=== PATIENT | female | born 1960 | race Caucasian/White ===

== ENCOUNTER 2018-08-02 07:23 | Emergency (ER) | payer BC ==
[~2018-08-02] VITALS: Ht 160 cm; Wt 59.0 kg
[~2018-08-02 07:23] MED LIST: KLONOPIN0.5 MG PO; ULTRAM50 M1 PO
[2018-08-02] MEDS ORDERED: FLEXERIL PO ×2 (08:41→09:19)
[2018-08-02] MEDS ORDERED: DICLOFENAC50 MG PO ×2 (08:41→09:19)
[2018-08-02 09:16] VITALS: BP 177/87
== END 2018-08-02 09:24 | disposition home or self-care (01) | DRG 605 ==
LOC: ED 07:23
DX: S00.03XA Contusion of scalp, initial encounter (principal); S16.1XXA Strain of muscle, fascia and tendon at neck level, initial encounter; W18.30XA Fall on same level, unspecified, initial encounter; Y92.008 Other place in unspecified non-institutional (private) residence as the place of occurrence of the external cause

== ENCOUNTER 2019-03-02 | Emergency (ER) | payer BC ==
[~2019-03-02] MED LIST changes: +DICLOFENAC50 MG PO; +FLEXERIL PO
--- NOTE | 2019-03-02 23:14 | NUR ---
BREATHING TREATMENT GIVEN BACK TO BACK WITH 2 ALBUTEROL AND 1 DUONEB. BREATHING TECH. FOR DEEO DEPOSITION TO THE LUNGS.
[2019-03-02 23:25] LABS: HEMATOCRIT 36.9 % (37.0-47.0); HEMOGLOBIN 12.4 g/dl (12.0-16.0); IMMATURE GRANULOCYTES 0.2 % (0.0-5.0); MEAN CELL VOLUME 91.3 fL CALC (80.0-100.0); MEAN CORPUSCULAR HGB 30.7 pG CALC (26.0-32.0); MEAN CORPUSCULAR HGB CONC 33.6 g/L CALC (32.0-36.0); NEUT# 4.74 thou/uL (2.00-7.15); RED BLOOD COUNT 4.04 mill/uL (4.20-5.60); RED CELL DISTRI WIDTH 11.7 % (11.5-15.5)
[2019-03-02 23:49] LABS: ALBUMIN 4.5 g/dL (3.2-5.0); ALKALINE PHOSPHATASE 63 u/l (38-126); BILIRUBIN, TOTAL 0.5 mg/dL (0.0-1.4); BUN 12 mg/dL (7-17); BUN/CREATININE RATIO 27 (12-20 (CALC)); CHLORIDE 98 mmol/l (95-108); CREATININE 0.5 mg/dL (0.5-1.0); GFR > 60 ML/MIN (>=60 (CALC)); GFR FOR AFR.AMER. > 60 ML/MIN (>=60 (CALC)); POTASSIUM 4.3 mmol/l (3.5-5.1); SGOT/AST 29 u/l (14-36); TOTAL PROTEIN 7.7 g/dL (6.3-8.2)
[2019-03-02 23:52] LABS: ANION GAP 12 (6-22 (CALC)); CARBON DIOXIDE 27 mmol/l (22-30); SODIUM 133 mmol/l (137-146)
[2019-03-03] MEDS ORDERED: VENTOLIN HFA IN (00:57)
[2019-03-03] MEDS ORDERED: PREDNISONE50 MG PO (00:57)
== END 2019-03-03 01:16 | disposition home or self-care (01) | DRG 203 ==
PROVIDERS: Family Medicine
DX: J20.8 Acute bronchitis due to other specified organisms (principal)

== ENCOUNTER 2019-07-02 07:07 | Emergency (ER) | payer BC ==
[~2019-07-02 07:07] MED LIST changes: +PREDNISONE50 MG PO; +VENTOLIN HFA IN
[2019-07-02] MEDS ORDERED: OLOPATADINE HCL 0.1% OU (07:24)
[2019-07-02 07:46] LABS: HEMATOCRIT 37.4 % (37.0-47.0); HEMOGLOBIN 12.8 g/dl (12.0-16.0); IMMATURE GRANULOCYTES 0.2 % (0.0-5.0); MEAN CORPUSCULAR HGB 30.1 pG CALC (26.0-32.0); MEAN CORPUSCULAR HGB CONC 34.2 g/dL CAL (32.0-36.0); NEUT# 2.94 thou/uL (2.00-7.15); RED BLOOD COUNT 4.25 mill/uL (4.20-5.60); RED CELL DISTRI WIDTH 11.9 % (11.5-15.5)
[2019-07-02 07:48] LABS: URINE BILIRUBIN - DIPSTICK NEGATIVE (NEGATIVE); URINE BLOOD DIPSTICK NEGATIVE (NEGATIVE); URINE COLOR YELLOW; URINE GLUCOSE - DIPSTICK NEGATIVE (NEGATIVE); URINE KETONE NEGATIVE (NEGATIVE); URINE LEUK ESTERASE NEGATIVE (NEGATIVE); URINE NITRITE - DIPSTICK NEGATIVE (Negative); URINE PH 6.5 (4.5-8.0); URINE PROTEIN - DIPSTICK NEGATIVE (NEG-TRACE); URINE UROBILINOGEN - DIPSTICK 0.2 E.U./dL (0.2)
[2019-07-02 08:03] LABS: ALBUMIN 4.7 g/dL (3.2-5.0); ALKALINE PHOSPHATASE 54 u/l (38-126); AMYLASE 49 u/l (30-110); ANION GAP 14 (6-22 (CALC)); BILIRUBIN, TOTAL 0.4 mg/dL (0.0-1.4); BUN 3 mg/dL (7-17); BUN/CREATININE RATIO 7 (12-20 (CALC)); CARBON DIOXIDE 23 mmol/l (22-30); CHLORIDE 93 mmol/l (95-108); CREATININE 0.5 mg/dL (0.5-1.0); GFR > 60 ML/MIN (>=60 (CALC)); GFR FOR AFR.AMER. > 60 ML/MIN (>=60 (CALC)); LIPASE 99 u/l (23-300); POTASSIUM 3.9 mmol/l (3.5-5.1); SGOT/AST 31 u/l (14-36); TOTAL PROTEIN 7.4 g/dL (6.3-8.2)
[2019-07-02 08:09] LABS: SODIUM 126 mmol/l (137-146)
[2019-07-02] MEDS ORDERED: TRAMADOL HYDROC50 MG PO (09:56)
[2019-07-02] MEDS ORDERED: ONDANSETRON4 MG PO ×2 (09:56)
[2019-07-02 10:21] VITALS: BP 161/79
== END 2019-07-02 10:18 | disposition home or self-care (01) | DRG 392 ==
LOC: ED 07:07
DX: R10.31 Right lower quadrant pain (principal); R11.0 Nausea; E87.1 Hypo-osmolality and hyponatremia
CPT/HCPCS: Q9967

== ENCOUNTER 2019-07-07 07:39 | Emergency (ER) | payer BC ==
[~2019-07-07 07:39] MED LIST changes: +OLOPATADINE HCL 0.1% OU; +ONDANSETRON4 MG PO; +TRAMADOL HYDROC50 MG PO
[2019-07-07 08:40] LABS: HEMATOCRIT 40.2 % (37.0-47.0); HEMOGLOBIN 13.6 g/dl (12.0-16.0); IMMATURE GRANULOCYTES 0.2 % (0.0-5.0); MEAN CELL VOLUME 87.8 fL CALC (80.0-100.0); MEAN CORPUSCULAR HGB 29.7 pG CALC (26.0-32.0); MEAN CORPUSCULAR HGB CONC 33.8 g/dL CAL (32.0-36.0); NEUT# 3.84 thou/uL (2.00-7.15); RED BLOOD COUNT 4.58 mill/uL (4.20-5.60); RED CELL DISTRI WIDTH 11.8 % (11.5-15.5)
[2019-07-07 08:52] LABS: URINE BILIRUBIN - DIPSTICK NEGATIVE (NEGATIVE); URINE BLOOD DIPSTICK NEGATIVE (NEGATIVE); URINE COLOR YELLOW; URINE GLUCOSE - DIPSTICK NEGATIVE (NEGATIVE); URINE KETONE NEGATIVE (NEGATIVE); URINE LEUK ESTERASE NEGATIVE (NEGATIVE); URINE NITRITE - DIPSTICK NEGATIVE (Negative); URINE PROTEIN - DIPSTICK NEGATIVE (NEG-TRACE); URINE UROBILINOGEN - DIPSTICK 0.2 E.U./dL (0.2)
[2019-07-07 10:01] LABS: ALBUMIN 4.9 g/dL (3.2-5.0); ALKALINE PHOSPHATASE 53 u/l (38-126); ANION GAP 12 (6-22 (CALC)); BILIRUBIN, TOTAL 0.5 mg/dL (0.0-1.4); BUN 2 mg/dL (7-17); BUN/CREATININE RATIO 5 (12-20 (CALC)); CARBON DIOXIDE 23 mmol/l (22-30); CHLORIDE 94 mmol/l (95-108); CREATININE 0.4 mg/dL (0.5-1.0); GFR > 60 ML/MIN (>=60 (CALC)); GFR FOR AFR.AMER. > 60 ML/MIN (>=60 (CALC)); LIPASE 88 u/l (23-300); POTASSIUM 4.2 mmol/l (3.5-5.1); SGOT/AST 37 u/l (14-36); SODIUM 125 mmol/l (137-146); TOTAL PROTEIN 7.9 g/dL (6.3-8.2)
[2019-07-07 10:26] LABS: AMYLASE 69 u/l (30-110)
[2019-07-07] MEDS ORDERED: MIRALAX3350 N1 PO ×2 (10:31)
[2019-07-07 11:30] VITALS: BP 169/81
== END 2019-07-07 11:31 | disposition home or self-care (01) | DRG 392 ==
LOC: ED 07:39
PROVIDERS: Emergency Medicine
DX: K59.00 Constipation, unspecified (principal); E87.1 Hypo-osmolality and hyponatremia; F41.9 Anxiety disorder, unspecified

== ENCOUNTER 2019-08-12 15:12 | Emergency (ER) | payer OTHER, BC ==
[~2019-08-12] VITALS: Ht 160 cm; Wt 53.0 kg
[~2019-08-12 15:12] MED LIST changes: +MIRALAX3350 N1 PO
[2019-08-12] MEDS ORDERED: MONTELUKAST SOD10 MG PO (16:04)
[2019-08-12] MEDS ORDERED: BUSPAR5 M1 PO (16:04)
[2019-08-12] MEDS ORDERED: CLONAZEPAM0.5 M1 PO (16:05)
[2019-08-12] MEDS ORDERED: NAPROXEN500 MG PO (16:55)
[2019-08-12] MEDS ORDERED: FLEXERIL PO (18:27)
[2019-08-12 18:30] VITALS: BP 122/79
== END 2019-08-12 18:30 | disposition home or self-care (01) | DRG 563 ==
LOC: ED 15:12
DX: S43.402A Unspecified sprain of left shoulder joint, initial encounter (principal); S13.9XXA Sprain of joints and ligaments of unspecified parts of neck, initial encounter; W22.09XA Striking against other stationary object, initial encounter; Y93.89 Activity, other specified; Y92.89 Other specified places as the place of occurrence of the external cause; Y99.0 Civilian activity done for income or pay

== ENCOUNTER 2019-12-07 12:52 | Emergency (ER) | payer BC ==
[~2019-12-07] VITALS: Ht 160 cm; Wt 55.0 kg
[~2019-12-07 12:52] MED LIST changes: +BUSPAR5 M1 PO; +CLONAZEPAM0.5 M1 PO; +MONTELUKAST SOD10 MG PO; +NAPROXEN500 MG PO
[2019-12-07] MEDS ORDERED: CEPHALEXIN500 M1 PO (13:25)
[2019-12-07 14:21] VITALS: BP 121/79
== END 2019-12-07 14:24 | disposition home or self-care (01) | DRG 603 ==
LOC: ED 12:52
DX: L03.113 Cellulitis of right upper limb (principal); S60.511A Abrasion of right hand, initial encounter; F41.9 Anxiety disorder, unspecified; X58.XXXA Exposure to other specified factors, initial encounter; Y93.H2 Activity, gardening and landscaping; Y92.007 Garden or yard of unspecified non-institutional (private) residence as the place of occurrence of the external cause

== ENCOUNTER 2020-04-30 07:16 | Emergency (ER) | payer BC ==
[~2020-04-30] VITALS: Ht 160 cm; Wt 60.0 kg
[~2020-04-30 07:16] MED LIST changes: +CEPHALEXIN500 M1 PO
[2020-04-30] MEDS ORDERED: AMOXICILLIN500 M2 PO (08:46)
[2020-04-30 09:10] VITALS: BP 163/87
== END 2020-04-30 09:15 | disposition home or self-care (01) | DRG 153 ==
LOC: ED 07:16
DX: J02.9 Acute pharyngitis, unspecified (principal); F41.9 Anxiety disorder, unspecified; Z20.822 Contact with and (suspected) exposure to COVID-19

== ENCOUNTER 2020-09-07 15:45 | Emergency (ER) | payer BC ==
[~2020-09-07] VITALS: Ht 162.6 cm; Wt 53.6 kg
[~2020-09-07 15:45] MED LIST changes: +AMOXICILLIN500 M2 PO
[2020-09-07 16:48] LABS: HEMATOCRIT 37.7 % (37.0-47.0); HEMOGLOBIN 12.6 g/dl (12.0-16.0); IMMATURE GRANULOCYTES 0.2 % (0.0-5.0); MEAN CELL VOLUME 92.2 fL CALC (80.0-100.0); MEAN CORPUSCULAR HGB 30.8 pG CALC (26.0-32.0); MEAN CORPUSCULAR HGB CONC 33.4 g/dL CAL (32.0-36.0); NEUT# 3.51 thou/uL (2.00-7.15); RED BLOOD COUNT 4.09 mill/uL (4.20-5.60); RED CELL DISTRI WIDTH 12.4 % (11.5-15.5)
[2020-09-07 17:10] LABS: ALBUMIN 4.6 g/dL (3.2-5.0); ALKALINE PHOSPHATASE 74 u/l (38-126); ANION GAP 14 (6-22 (CALC)); BUN 10 mg/dL (7-17); BUN/CREATININE RATIO 19 (12-20 (CALC)); CARBON DIOXIDE 25 mmol/l (22-30); CHLORIDE 95 mmol/l (95-108); CREATININE 0.5 mg/dL (0.5-1.0); GFR > 60 ML/MIN (>=60 (CALC)); GFR FOR AFR.AMER. > 60 ML/MIN (>=60 (CALC)); LIPASE 158 u/l (23-300); MAGNESIUM 1.8 mg/dL (1.6-2.3); POTASSIUM 3.9 mmol/l (3.5-5.1); SGOT/AST 34 u/l (14-36); SODIUM 131 mmol/l (137-146); TOTAL PROTEIN 7.4 g/dL (6.3-8.2)
[2020-09-07 17:11] LABS: BILIRUBIN, TOTAL 0.2 mg/dL (0.0-1.4)
[2020-09-07 18:08] LABS: URINE BILIRUBIN - DIPSTICK NEGATIVE (NEGATIVE); URINE BLOOD DIPSTICK NEGATIVE (NEGATIVE); URINE COLOR YELLOW; URINE GLUCOSE - DIPSTICK NEGATIVE (NEGATIVE); URINE KETONE NEGATIVE (NEGATIVE); URINE LEUK ESTERASE TRACE (NEGATIVE); URINE NITRITE - DIPSTICK NEGATIVE (Negative); URINE PROTEIN - DIPSTICK NEGATIVE (NEG-TRACE); URINE SPECIFIC GRAVITY 1.015; URINE UROBILINOGEN - DIPSTICK 0.2 E.U./dL (0.2)
[2020-09-07 19:50] VITALS: BP 128/75
== END 2020-09-07 19:55 | disposition home or self-care (01) | DRG 310 ==
LOC: ED 15:45
DX: R00.2 Palpitations (principal); F41.9 Anxiety disorder, unspecified

== ENCOUNTER 2020-09-10 05:30 | Emergency (ER) | payer BC ==
[~2020-09-10] VITALS: Ht 160 cm; Wt 53.0 kg
[2020-09-10 05:50] VITALS: BP 139/74
[2020-09-10 06:54] LABS: HEMATOCRIT 37.8 % (37.0-47.0); HEMOGLOBIN 13.1 g/dl (12.0-16.0); IMMATURE GRANULOCYTES 0.4 % (0.0-5.0); MEAN CELL VOLUME 89.8 fL CALC (80.0-100.0); MEAN CORPUSCULAR HGB 31.1 pG CALC (26.0-32.0); MEAN CORPUSCULAR HGB CONC 34.7 g/dL CAL (32.0-36.0); NEUT# 5.28 thou/uL (2.00-7.15); RED BLOOD COUNT 4.21 mill/uL (4.20-5.60); RED CELL DISTRI WIDTH 11.7 % (11.5-15.5)
[2020-09-10 06:56] LABS: URINE BILIRUBIN - DIPSTICK NEGATIVE (NEGATIVE); URINE BLOOD DIPSTICK NEGATIVE (NEGATIVE); URINE COLOR YELLOW; URINE GLUCOSE - DIPSTICK NEGATIVE (NEGATIVE); URINE KETONE NEGATIVE (NEGATIVE); URINE LEUK ESTERASE NEGATIVE (NEGATIVE); URINE PH 6.5 (4.5-8.0); URINE PROTEIN - DIPSTICK NEGATIVE (NEG-TRACE); URINE SPECIFIC GRAVITY <=1.005; URINE UROBILINOGEN - DIPSTICK 0.2 E.U./dL (0.2)
[2020-09-10 06:57] LABS: URINE NITRITE - DIPSTICK NEGATIVE (Negative)
[2020-09-10 07:09] LABS: ALBUMIN 4.2 g/dL (3.2-5.0); ALKALINE PHOSPHATASE 63 u/l (38-126); ANION GAP 12 (6-22 (CALC)); BILIRUBIN, TOTAL 0.2 mg/dL (0.0-1.4); BUN 9 mg/dL (7-17); BUN/CREATININE RATIO 19 (12-20 (CALC)); CARBON DIOXIDE 23 mmol/l (22-30); CHLORIDE 92 mmol/l (95-108); CREATININE 0.5 mg/dL (0.5-1.0); GFR > 60 ML/MIN (>=60 (CALC)); GFR FOR AFR.AMER. > 60 ML/MIN (>=60 (CALC)); SGOT/AST 43 u/l (14-36); TOTAL PROTEIN 7.1 g/dL (6.3-8.2)
[2020-09-10 07:11] LABS: INTERNATIONAL NORMALIZED RATIO 0.9 RATIO (0.7-1.3); PROTHROMBIN TIME 9.9 SECONDS (9.0-12.5)
[2020-09-10 07:19] LABS: SODIUM 123 mmol/l (137-146)
== END 2020-09-10 08:10 | disposition left against medical advice (07) | DRG 309 ==
LOC: ED 05:30
PROVIDERS: Emergency Medicine
DX: R00.2 Palpitations (principal); E87.1 Hypo-osmolality and hyponatremia; F41.9 Anxiety disorder, unspecified; T50.906A Underdosing of unspecified drugs, medicaments and biological substances, initial encounter; Z91.128 Patient's intentional underdosing of medication regimen for other reason; Z86.19 Personal history of other infectious and parasitic diseases; Z91.19 Patient's noncompliance with other medical treatment and regimen

== ENCOUNTER 2020-09-24 07:22 | Observation (INO) | payer BC ==
[~2020-09-24] VITALS: Ht 152.4 cm; Wt 53.6 kg
[2020-09-24] MEDS ORDERED: TOPROL XL25 MG PO (07:49)
[2020-09-24] MEDS ORDERED: KLONOPIN0.5 M1 PO (07:50)
[2020-09-24 08:11] LABS: URINE BILIRUBIN - DIPSTICK NEGATIVE (NEGATIVE); URINE BLOOD DIPSTICK NEGATIVE (NEGATIVE); URINE COLOR YELLOW; URINE GLUCOSE - DIPSTICK NEGATIVE (NEGATIVE); URINE KETONE NEGATIVE (NEGATIVE); URINE LEUK ESTERASE NEGATIVE (NEGATIVE); URINE PH 6.5 (4.5-8.0); URINE PROTEIN - DIPSTICK NEGATIVE (NEG-TRACE); URINE SPECIFIC GRAVITY <=1.005; URINE UROBILINOGEN - DIPSTICK 0.2 E.U./dL (0.2)
[2020-09-24 08:17] LABS: URINE NITRITE - DIPSTICK NEGATIVE (Negative)
[2020-09-24 08:19] LABS: HEMATOCRIT 41.4 % (37.0-47.0); HEMOGLOBIN 14.1 g/dl (12.0-16.0); IMMATURE GRANULOCYTES 0.1 % (0.0-5.0); MEAN CELL VOLUME 91.2 fL CALC (80.0-100.0); MEAN CORPUSCULAR HGB 31.1 pG CALC (26.0-32.0); MEAN CORPUSCULAR HGB CONC 34.1 g/dL CAL (32.0-36.0); NEUT# 4.81 thou/uL (2.00-7.15); RED BLOOD COUNT 4.54 mill/uL (4.20-5.60); RED CELL DISTRI WIDTH 11.9 % (11.5-15.5)
[2020-09-24 08:40] LABS: ALBUMIN 4.7 g/dL (3.2-5.0); ALKALINE PHOSPHATASE 62 u/l (38-126); ANION GAP 14 (6-22 (CALC)); BILIRUBIN, TOTAL 0.2 mg/dL (0.0-1.4); BUN 16 mg/dL (7-17); BUN/CREATININE RATIO 34 (12-20 (CALC)); CARBON DIOXIDE 27 mmol/l (22-30); CHLORIDE 92 mmol/l (95-108); CREATININE 0.5 mg/dL (0.5-1.0); GFR > 60 ML/MIN (>=60 (CALC)); GFR FOR AFR.AMER. > 60 ML/MIN (>=60 (CALC)); LIPASE 159 u/l (23-300); POTASSIUM 4.3 mmol/l (3.5-5.1); SGOT/AST 40 u/l (14-36); SODIUM 128 mmol/l (137-146); TOTAL PROTEIN 7.8 g/dL (6.3-8.2)
[2020-09-24 10:30] VITALS: BP 132/70
[2020-09-24 15:25] VITALS: BP 121/68
[2020-09-24 18:43] VITALS: BP 98/64
[2020-09-25] VITALS: BP 110/71
[2020-09-25 05:08] VITALS: BP 110/67
[2020-09-25 06:17] LABS: ANION GAP 9 (6-22 (CALC)); BUN 14 mg/dL (7-17); BUN/CREATININE RATIO 27 (12-20 (CALC)); CALCULATED LDLCHOLESTEROL 113 mg/dL (62-129 (CALC)); CARBON DIOXIDE 26 mmol/l (22-30); CHLORIDE 100 mmol/l (95-108); CREATININE 0.5 mg/dL (0.5-1.0); GFR > 60 ML/MIN (>=60 (CALC)); GFR FOR AFR.AMER. > 60 ML/MIN (>=60 (CALC)); HDL CHOLESTEROL 46 mg/dL (>=40); MAGNESIUM 1.9 mg/dL (1.6-2.3); POTASSIUM 4.3 mmol/l (3.5-5.1); SODIUM 130 mmol/l (137-146); TOTAL CHOLESTEROL 182 mg/dl (0-199); TOTAL TRIGLYCERIDES 120 mg/dl (30-149); VLDL CHOLESTROL 24 mg/dl (2-49 (CALC))
[2020-09-25 06:20] LABS: MEAN CELL VOLUME 92.3 fL CALC (80.0-100.0); MEAN CORPUSCULAR HGB 31.2 pG CALC (26.0-32.0); MEAN CORPUSCULAR HGB CONC 33.8 g/dL CAL (32.0-36.0); RED BLOOD COUNT 3.75 mill/uL (4.20-5.60)
[2020-09-25 06:25] LABS: HEMATOCRIT 34.6 % (37.0-47.0); HEMOGLOBIN 11.7 g/dl (12.0-16.0)
[2020-09-25 06:55] VITALS: BP 128/80
[2020-09-25 10:40] VITALS: BP 113/62
[2020-09-25] MEDS ORDERED: PROTONIX40 M2 PO (11:00)
== END 2020-09-25 11:38 | disposition home or self-care (01) | DRG 313 ==
LOC: ED 07:22 → ED-I 09:40 → ED 10:02 → MS2 10:03
PROVIDERS: Family Medicine; Nurse Practitioner; ADMIT Internal Medicine; ATTEND Internal Medicine
DX: R07.89 Other chest pain (principal); E87.1 Hypo-osmolality and hyponatremia; R00.2 Palpitations; I10 Essential (primary) hypertension; F41.9 Anxiety disorder, unspecified; Z87.891 Personal history of nicotine dependence; Z20.822 Contact with and (suspected) exposure to COVID-19
CPT/HCPCS: G0378; J1650

== ENCOUNTER 2020-11-10 12:05 | Emergency (ER) | payer BC ==
[~2020-11-10] VITALS: Ht 160 cm; Wt 60.9 kg
[~2020-11-10 12:05] MED LIST changes: +KLONOPIN0.5 M1 PO; +PROTONIX40 M2 PO; +TOPROL XL25 MG PO
[2020-11-10] MEDS ORDERED: PROTONIX40 M2 PO (12:36)
[2020-11-10] MEDS ORDERED: DIGOXIN0.125 MG PO (12:37)
[2020-11-10] MEDS ORDERED: SOD CHLORIDE1 G2 PO (12:49)
[2020-11-10 13:08] LABS: HEMATOCRIT 40.1 % (37.0-47.0); HEMOGLOBIN 13.4 g/dl (12.0-16.0); IMMATURE GRANULOCYTES 0.4 % (0.0-5.0); MEAN CELL VOLUME 91.3 fL CALC (80.0-100.0); MEAN CORPUSCULAR HGB 30.5 pG CALC (26.0-32.0); MEAN CORPUSCULAR HGB CONC 33.4 g/dL CAL (32.0-36.0); NEUT# 4.35 thou/uL (2.00-7.15); RED BLOOD COUNT 4.39 mill/uL (4.20-5.60); RED CELL DISTRI WIDTH 11.5 % (11.5-15.5)
[2020-11-10 13:25] LABS: ALBUMIN 4.4 g/dL (3.2-5.0); ALKALINE PHOSPHATASE 89 u/l (38-126); ANION GAP 9 (6-22 (CALC)); BUN 16 mg/dL (7-17); BUN/CREATININE RATIO 38 (12-20 (CALC)); CARBON DIOXIDE 24 mmol/l (22-30); CHLORIDE 102 mmol/l (95-108); CREATININE 0.4 mg/dL (0.5-1.0); GFR > 60 ML/MIN (>=60 (CALC)); GFR FOR AFR.AMER. > 60 ML/MIN (>=60 (CALC)); LIPASE 148 u/l (23-300); POTASSIUM 4.2 mmol/l (3.5-5.1); SGOT/AST 41 u/l (14-36); SODIUM 131 mmol/l (137-146); TOTAL PROTEIN 7.4 g/dL (6.3-8.2)
[2020-11-10 13:27] LABS: BILIRUBIN, TOTAL 0.5 mg/dL (0.0-1.4)
[2020-11-10 13:43] LABS: URINE BILIRUBIN - DIPSTICK NEGATIVE (NEGATIVE); URINE BLOOD DIPSTICK NEGATIVE (NEGATIVE); URINE COLOR YELLOW; URINE GLUCOSE - DIPSTICK NEGATIVE (NEGATIVE); URINE KETONE NEGATIVE (NEGATIVE); URINE LEUK ESTERASE TRACE (NEGATIVE); URINE PH 6.5 (4.5-8.0); URINE PROTEIN - DIPSTICK NEGATIVE (NEG-TRACE); URINE UROBILINOGEN - DIPSTICK 0.2 E.U./dL (0.2)
[2020-11-10 13:45] LABS: URINE NITRITE - DIPSTICK NEGATIVE (Negative)
[2020-11-10 17:47] VITALS: BP 108/69
== END 2020-11-10 18:02 | disposition home or self-care (01) | DRG 313 ==
LOC: ED 12:05
PROVIDERS: Family Medicine
DX: R07.9 Chest pain, unspecified (principal); I50.9 Heart failure, unspecified; F41.9 Anxiety disorder, unspecified; Z86.19 Personal history of other infectious and parasitic diseases; Z20.822 Contact with and (suspected) exposure to COVID-19
CPT/HCPCS: Q9967

== ENCOUNTER 2021-04-09 07:14 | Emergency (ER) | payer BC ==
[~2021-04-09] VITALS: Ht 160 cm; Wt 64.5 kg
[~2021-04-09 07:14] MED LIST changes: +DIGOXIN0.125 MG PO; +SOD CHLORIDE1 G2 PO
[2021-04-09 08:36] LABS: HEMATOCRIT 38.6 % (37.0-47.0); IMMATURE GRANULOCYTES 0.4 % (0.0-5.0); MEAN CELL VOLUME 94.1 fL CALC (80.0-100.0); MEAN CORPUSCULAR HGB 31.7 pG CALC (26.0-32.0); MEAN CORPUSCULAR HGB CONC 33.7 g/dL CAL (32.0-36.0); NEUT# 3.38 thou/uL (2.00-7.15); RED BLOOD COUNT 4.1 mill/uL (4.20-5.60); RED CELL DISTRI WIDTH 12.7 % (11.5-15.5)
[2021-04-09 08:42] LABS: ALBUMIN 4.3 g/dL (3.2-5.0); ALKALINE PHOSPHATASE 82 u/l (38-126); ANION GAP 10 (6-22 (CALC)); BILIRUBIN, TOTAL 0.5 mg/dL (0.0-1.4); BUN 10 mg/dL (7-17); BUN/CREATININE RATIO 14 (12-20 (CALC)); CARBON DIOXIDE 28 mmol/l (22-30); CHLORIDE 101 mmol/l (95-108); CREATININE 0.7 mg/dL (0.5-1.0); GFR > 60 ML/MIN (>=60 (CALC)); GFR FOR AFR.AMER. > 60 ML/MIN (>=60 (CALC)); POTASSIUM 4.8 mmol/l (3.5-5.1); SGOT/AST 36 u/l (14-36); SODIUM 135 mmol/l (137-146); TOTAL PROTEIN 7.4 g/dL (6.3-8.2)
[2021-04-09 08:46] LABS: URINE BILIRUBIN - DIPSTICK NEGATIVE (NEGATIVE); URINE BLOOD DIPSTICK NEGATIVE (NEGATIVE); URINE COLOR YELLOW; URINE GLUCOSE - DIPSTICK NEGATIVE (NEGATIVE); URINE KETONE NEGATIVE (NEGATIVE); URINE PROTEIN - DIPSTICK NEGATIVE (NEG-TRACE); URINE SPECIFIC GRAVITY 1.015; URINE UROBILINOGEN - DIPSTICK 0.2 E.U./dL (0.2)
[2021-04-09 08:52] LABS: URINE LEUK ESTERASE SMALL (NEGATIVE); URINE NITRITE - DIPSTICK NEGATIVE (Negative)
[2021-04-09 08:56] LABS: URINE WBC 0-2 WBC/hpf (0-5)
[2021-04-09] MEDS ORDERED: CLONIDINE0.1 MG PO (13:00)
[2021-04-09 13:30] VITALS: BP 122/65
== END 2021-04-09 13:20 | disposition home or self-care (01) | DRG 305 ==
LOC: ED 07:14
PROVIDERS: Emergency Medicine
DX: I10 Essential (primary) hypertension (principal); F41.9 Anxiety disorder, unspecified; I50.9 Heart failure, unspecified; R82.71 Bacteriuria

== ENCOUNTER 2021-07-30 07:56 | Observation (INO) | payer BC ==
[~2021-07-30] VITALS: Ht 160 cm; Wt 63.0 kg
[~2021-07-30 07:56] MED LIST changes: +CLONIDINE0.1 MG PO; -KLONOPIN0.5 M1 PO
[2021-07-30 08:42] LABS: HEMATOCRIT 40.9 % (37.0-47.0); HEMOGLOBIN 13.6 g/dl (12.0-16.0); IMMATURE GRANULOCYTES 0.5 % (0.0-5.0); MEAN CELL VOLUME 95.1 fL CALC (80.0-100.0); MEAN CORPUSCULAR HGB 31.6 pG CALC (26.0-32.0); MEAN CORPUSCULAR HGB CONC 33.3 g/dL CAL (32.0-36.0); NEUT# 2.52 thou/uL (2.00-7.15); RED BLOOD COUNT 4.3 mill/uL (4.20-5.60); RED CELL DISTRI WIDTH 11.9 % (11.5-15.5)
[2021-07-30 08:57] LABS: ALBUMIN 4.5 g/dL (3.2-5.0); ALKALINE PHOSPHATASE 86 u/l (38-126); BILIRUBIN, TOTAL 0.3 mg/dL (0.0-1.4); BUN 10 mg/dL (7-17); BUN/CREATININE RATIO 18 (12-20 (CALC)); CHLORIDE 99 mmol/l (95-108); CREATININE 0.6 mg/dL (0.5-1.0); GFR FOR AFR.AMER. > 60 ML/MIN (>=60 (CALC)); GFR OTHER RACES > 60 ML/MIN (>=60 (CALC)); SGOT/AST 35 u/l (14-36); TOTAL PROTEIN 7.8 g/dL (6.3-8.2)
[2021-07-30 09:03] LABS: ANION GAP 12 (6-22 (CALC)); CARBON DIOXIDE 20 mmol/l (22-30); SODIUM 127 mmol/l (137-146)
[2021-07-30 11:02] LABS: URINE BILIRUBIN - DIPSTICK NEGATIVE (NEGATIVE); URINE BLOOD DIPSTICK NEGATIVE (NEGATIVE); URINE COLOR YELLOW; URINE GLUCOSE - DIPSTICK NEGATIVE (NEGATIVE); URINE KETONE TRACE mg/dL (NEGATIVE); URINE PH 6.5 (4.5-8.0); URINE PROTEIN - DIPSTICK NEGATIVE (NEG-TRACE); URINE SPECIFIC GRAVITY 1.015; URINE UROBILINOGEN - DIPSTICK 0.2 E.U./dL (0.2)
[2021-07-30 11:04] LABS: URINE LEUK ESTERASE MODERATE (NEGATIVE); URINE NITRITE - DIPSTICK NEGATIVE (Negative)
[2021-07-30 11:07] LABS: URINE EPITHELIAL CELLS FEW EPI/hpf (0-FEW)
[2021-07-30 11:08] LABS: URINE BACTERIA FEW hpf
[2021-07-30] MEDS ORDERED: SOD CHLORIDE1 GM PO (12:38)
[2021-07-30] MEDS ORDERED: CORLANOR5 MG PO (12:38)
[2021-07-30] MEDS ORDERED: BUSPAR5 MG PO (12:39)
[2021-07-30] MEDS ORDERED: DILTIAZEM HYDR120 M1 PO (12:39)
[2021-07-30 15:57] VITALS: BP 148/71
[2021-07-30 19:04] VITALS: BP 101/52
[2021-07-31 00:20] VITALS: BP 117/66
[2021-07-31 04:30] VITALS: BP 125/72
[2021-07-31 06:52] LABS: ANION GAP 10 (6-22 (CALC)); BUN 13 mg/dL (7-17); BUN/CREATININE RATIO 20 (12-20 (CALC)); CALCULATED LDLCHOLESTEROL 137 mg/dL (62-129 (CALC)); CARBON DIOXIDE 22 mmol/l (22-30); CHLORIDE 102 mmol/l (95-108); CHOLESTEROL HDL RATIO 3.2 (<4.4 (CALC)); CREATININE 0.7 mg/dL (0.5-1.0); GFR FOR AFR.AMER. > 60 ML/MIN (>=60 (CALC)); GFR OTHER RACES > 60 ML/MIN (>=60 (CALC)); HDL CHOLESTEROL 71 mg/dL (>=40); MAGNESIUM 1.8 mg/dL (1.6-2.3); POTASSIUM 4.2 mmol/l (3.5-5.1); SODIUM 129 mmol/l (137-146); TOTAL CHOLESTEROL 226 mg/dl (0-199); TOTAL TRIGLYCERIDES 85 mg/dl (30-149); VLDL CHOLESTROL 17 mg/dl (1-41 (CALC))
[2021-07-31 07:39] VITALS: BP 107/56
[2021-07-31 10:44] VITALS: BP 106/55
[2021-07-31] MEDS ORDERED: PANTOPRAZOLE SO40 M1 PO (11:19)
[2021-07-31] MEDS ORDERED: KEFLEX500 MG PO (11:22)
== END 2021-07-31 11:35 | disposition home or self-care (01) | DRG 392 ==
LOC: ED 07:56 → ED-I 10:10 → ED 10:44 → MS2 10:45
PROVIDERS: Family Medicine; ADMIT Internal Medicine; ATTEND Internal Medicine
DX: R12 Heartburn (principal); E87.1 Hypo-osmolality and hyponatremia; N39.0 Urinary tract infection, site not specified; I11.0 Hypertensive heart disease with heart failure; I50.9 Heart failure, unspecified; F41.9 Anxiety disorder, unspecified; T47.1X6A Underdosing of other antacids and anti-gastric-secretion drugs, initial encounter; Z91.128 Patient's intentional underdosing of medication regimen for other reason; Z20.822 Contact with and (suspected) exposure to COVID-19
CPT/HCPCS: G0378; J1650

== ENCOUNTER 2021-09-23 10:13 | Emergency (ER) | payer BC ==
[~2021-09-23] VITALS: Ht 160 cm; Wt 61.8 kg
[~2021-09-23 10:13] MED LIST changes: +BUSPAR5 MG PO; +CORLANOR5 MG PO; +DILTIAZEM HYDR120 M1 PO; +KEFLEX500 MG PO; +PANTOPRAZOLE SO40 M1 PO; +SOD CHLORIDE1 GM PO
[2021-09-23 10:26] VITALS: BP 136/61
[2021-09-23 10:31] VITALS: BP 146/81
[2021-09-23 11:06] LABS: URINE BILIRUBIN - DIPSTICK NEGATIVE (NEGATIVE); URINE BLOOD DIPSTICK NEGATIVE (NEGATIVE); URINE COLOR YELLOW; URINE GLUCOSE - DIPSTICK NEGATIVE (NEGATIVE); URINE KETONE NEGATIVE (NEGATIVE); URINE PROTEIN - DIPSTICK NEGATIVE (NEG-TRACE); URINE UROBILINOGEN - DIPSTICK 0.2 E.U./dL (0.2)
[2021-09-23 11:07] LABS: URINE NITRITE - DIPSTICK NEGATIVE (Negative)
[2021-09-23 11:08] LABS: HEMATOCRIT 43.3 % (37.0-47.0); HEMOGLOBIN 14.4 g/dl (12.0-16.0); IMMATURE GRANULOCYTES 0.3 % (0.0-5.0); MEAN CORPUSCULAR HGB 31.6 pG CALC (26.0-32.0); MEAN CORPUSCULAR HGB CONC 33.3 g/dL CAL (32.0-36.0); NEUT# 4.01 thou/uL (2.00-7.15); RED BLOOD COUNT 4.56 mill/uL (4.20-5.60); RED CELL DISTRI WIDTH 12.6 % (11.5-15.5)
[2021-09-23 11:08] LABS: URINE LEUK ESTERASE LARGE (NEGATIVE)
[2021-09-23 11:21] LABS: URINE RBC 0-2 RBC/hpf (0-5); URINE SQUAMOUS EPITHELIAL CELL FEW EPI/hpf (0-FEW)
[2021-09-23 11:22] LABS: URINE RENAL EPITHELIAL CELLS RARE hpf
[2021-09-23 11:39] LABS: ALBUMIN 4.6 g/dL (3.2-5.0); ALKALINE PHOSPHATASE 91 u/l (38-126); ANION GAP 14 (6-22 (CALC)); BILIRUBIN, TOTAL 0.3 mg/dL (0.0-1.4); BUN 13 mg/dL (7-17); BUN/CREATININE RATIO 21 (12-20 (CALC)); CARBON DIOXIDE 25 mmol/l (22-30); CHLORIDE 101 mmol/l (95-108); CREATININE 0.6 mg/dL (0.5-1.0); GFR FOR AFR.AMER. > 60 ML/MIN (>=60 (CALC)); GFR OTHER RACES > 60 ML/MIN (>=60 (CALC)); LIPASE 123 u/l (23-300); POTASSIUM 3.8 mmol/l (3.5-5.1); SGOT/AST 41 u/l (14-36)
[2021-09-23 11:48] LABS: SODIUM 136 mmol/l (137-146)
[2021-09-23] MEDS ORDERED: OMNI-PAC300 MG PO (12:29)
[2021-09-23] MEDS ORDERED: TRAMADOL HYDROC50 M1 PO (12:34)
[2021-09-23 12:39] VITALS: BP 146/81
== END 2021-09-23 12:54 | disposition home or self-care (01) | DRG 690 ==
LOC: ED 10:13
PROVIDERS: Family Medicine
DX: N39.0 Urinary tract infection, site not specified (principal); F41.9 Anxiety disorder, unspecified; I50.9 Heart failure, unspecified; B96.5 Pseudomonas (aeruginosa) (mallei) (pseudomallei) as the cause of diseases classified elsewhere

== ENCOUNTER 2022-03-17 07:56 | Emergency (ER) | payer BC ==
[~2022-03-17] VITALS: Ht 160 cm; Wt 49.0 kg
[~2022-03-17 07:56] MED LIST changes: +OMNI-PAC300 MG PO; +TRAMADOL HYDROC50 M1 PO
[2022-03-17] MEDS ORDERED: FAMOTIDINE20 M1 PO (08:09)
[2022-03-17] MEDS ORDERED: TRAMADOL HYDROC50 M1 PO ×2 (10:31→10:34)
[2022-03-17] MEDS ORDERED: PREDNISONE50 MG PO (10:32)
[2022-03-17] MEDS ORDERED: IBUPROFEN600 MG PO ×2 (10:32→12:03)
[2022-03-17 10:39] VITALS: BP 143/75
== END 2022-03-17 10:47 | disposition home or self-care (01) | DRG 552 ==
LOC: ED 07:56
DX: M54.50 Low back pain, unspecified (principal)

== ENCOUNTER 2022-04-01 04:16 | Emergency (ER) | payer BC ==
[~2022-04-01] VITALS: Ht 160 cm; Wt 130.0 kg
[~2022-04-01 04:16] MED LIST changes: +FAMOTIDINE20 M1 PO; +IBUPROFEN600 MG PO
== END 2022-04-01 05:40 | disposition home or self-care (01) | DRG 696 ==
LOC: ED 04:16
DX: R32 Unspecified urinary incontinence (principal); R20.2 Paresthesia of skin; I50.9 Heart failure, unspecified

== ENCOUNTER 2022-04-04 06:46 | Emergency (ER) | payer BC ==
[~2022-04-04] VITALS: Ht 160 cm; Wt 49.4 kg
[2022-04-04] VITALS (7 sets, daily range): BP systolic 134–181; BP diastolic 50–103
[2022-04-04 07:38] LABS: URINE BILIRUBIN - DIPSTICK NEGATIVE (NEGATIVE); URINE BLOOD DIPSTICK NEGATIVE (NEGATIVE); URINE GLUCOSE - DIPSTICK NEGATIVE (NEGATIVE); URINE KETONE NEGATIVE (NEGATIVE); URINE LEUK ESTERASE NEGATIVE (NEGATIVE); URINE NITRITE - DIPSTICK NEGATIVE (Negative); URINE PROTEIN - DIPSTICK NEGATIVE (NEG-TRACE); URINE SPECIFIC GRAVITY <=1.005; URINE UROBILINOGEN - DIPSTICK 0.2 E.U./dL (0.2)
[2022-04-04 07:39] LABS: URINE COLOR STRAW
[2022-04-04 07:42] LABS: BASO% 0.1 % (0-3); EOS% 0.1 % (0-8); HEMATOCRIT 42.7 % (37.0-47.0); HEMOGLOBIN 13.6 g/dl (12.0-16.0); IMMATURE GRANULOCYTES 0.4 % (0.0-5.0); LYMPH% 6.9 % (15-41); MEAN CORPUSCULAR HGB 30.6 pG CALC (26.0-32.0); MEAN CORPUSCULAR HGB CONC 31.9 g/dL CAL (32.0-36.0); MONO% 2.5 % (2-13); NEUT# 7.13 thou/uL (2.00-7.15); RED BLOOD COUNT 4.45 mill/uL (4.20-5.60)
[2022-04-04 07:55] LABS: ALBUMIN 4.2 g/dL (3.2-5.0); ALKALINE PHOSPHATASE 70 u/l (38-126); ANION GAP 11 (6-22 (CALC)); BILIRUBIN, TOTAL 0.2 mg/dL (0.02-1.3); BUN 17 mg/dL (8-23); BUN/CREATININE RATIO 25 (12-20 (CALC)); CARBON DIOXIDE 25 mmol/l (22-30); CHLORIDE 101 mmol/l (95-108); CREATININE 0.7 mg/dL (0.5-1.0); GFR FOR AFR.AMER. > 60 ML/MIN (>=60 (CALC)); GFR OTHER RACES > 60 ML/MIN (>=60 (CALC)); POTASSIUM 3.8 mmol/l (3.5-5.1); SGOT/AST 43 u/l (9-36); SODIUM 133 mmol/l (137-146); TOTAL PROTEIN 6.8 g/dL (6.3-8.2)
== END 2022-04-04 09:56 | disposition left against medical advice (07) | DRG 696 ==
LOC: ED 06:46
PROVIDERS: Family Medicine
DX: R32 Unspecified urinary incontinence (principal); R20.2 Paresthesia of skin; I50.9 Heart failure, unspecified; I10 Essential (primary) hypertension; K21.9 Gastro-esophageal reflux disease without esophagitis

== ENCOUNTER 2023-03-05 13:16 | Emergency (ER) | payer BC ==
[2023-03-05] VITALS (9 sets, daily range): BP systolic 117–150; BP diastolic 65–80
[~2023-03-05] VITALS: Ht 160 cm; Wt 54.6 kg
[~2023-03-05 13:16] MED LIST changes: +HYZAAR1 TA1 PO
[2023-03-05 14:10] LABS: BASO% 0.9 % (0-3); EOS% 1.9 % (0-8); HEMATOCRIT 37.5 % (37.0-47.0); HEMOGLOBIN 12.6 g/dl (12.0-16.0); IMMATURE GRANULOCYTES 0.2 % (0.0-5.0); LYMPH% 29.3 % (15-41); MEAN CELL VOLUME 94.7 fL CALC (80.0-100.0); MEAN CORPUSCULAR HGB 31.8 pG CALC (26.0-32.0); MEAN CORPUSCULAR HGB CONC 33.6 g/dL CAL (32.0-36.0); MONO% 10.8 % (2-13); NEUT# 2.64 thou/uL (2.00-7.15); NEUT% 56.9 % (42-76); RED BLOOD COUNT 3.96 mill/uL (4.20-5.60)
[2023-03-05 14:38] LABS: ALBUMIN 4.3 g/dL (3.2-5.0); ALKALINE PHOSPHATASE 56 u/l (38-126); ANION GAP 10 (6-22 (CALC)); BILIRUBIN, TOTAL 0.5 mg/dL (0.02-1.3); BUN 12 mg/dL (8-23); BUN/CREATININE RATIO 20 (12-20 (CALC)); CARBON DIOXIDE 25 mmol/l (22-30); CHLORIDE 96 mmol/l (95-108); CREATININE 0.6 mg/dL (0.5-1.0); GFR FOR AFR.AMER. > 60 ML/MIN (>=60 (CALC)); GFR OTHER RACES > 60 ML/MIN (>=60 (CALC)); POTASSIUM 3.9 mmol/l (3.5-5.1); SGOT/AST 42 u/l (9-36); SODIUM 127 mmol/l (137-146); TOTAL PROTEIN 6.7 g/dL (6.3-8.2)
[2023-03-05] MEDS ORDERED: PROTONIX40 M2 PO (16:41)
== END 2023-03-05 16:56 | disposition home or self-care (01) | DRG 392 ==
LOC: ED 13:16
PROVIDERS: Family Medicine
DX: K29.70 Gastritis, unspecified, without bleeding (principal); K29.80 Duodenitis without bleeding; E87.1 Hypo-osmolality and hyponatremia; I50.9 Heart failure, unspecified
CPT/HCPCS: Q9967